=== PATIENT | male | born 2000 | race Two or more races ===

== ENCOUNTER 2021-09-12 21:08 | Emergency (ER) | payer OTHER ==
[~2021-09-12] VITALS: Ht 177.8 cm; Wt 88.5 kg
[2021-09-12 21:18] VITALS: BP 148/90
[2021-09-12] MEDS ORDERED: ACCU-CHEK COMFORT CURVE STRIP VI ONE (21:45)
== END 2021-09-12 22:11 | disposition left against medical advice (07) ==
LOC: EDBD 21:08 → ER 21:08
DX: R11.2 Nausea with vomiting, unspecified (principal); Z53.21 Procedure and treatment not carried out due to patient leaving prior to being seen by health care provider